=== PATIENT | male | born 1955 ===

== ENCOUNTER → 2018-07-06 14:02 | Outpatient (REF) | payer OTHER, SELFPAY ==
[2018-07-06 14:34] LABS: Erythrocyte Sedimentation Rate 5 MM/HR (0-15)
== END ==
LOC: LAB 14:02
PROVIDERS: Visit Provider Family Medicine
DX: E11.9 Type 2 diabetes mellitus without complications (principal); E78.5 Hyperlipidemia, unspecified; Z00.00 Encounter for general adult medical examination without abnormal findings
CPT/HCPCS: 85651